=== PATIENT | female | born 1970 | race Caucasian/White ===

== ENCOUNTER → 2018-04-09 | Outpatient (CLI) | payer OTHER ==
[2018-04-09 14:19] LABS: BASOPHIL % 1.3 % (0-2); PLATELET COUNT 348 x10^3mcL (130-400)
[2018-04-09 14:30] LABS: RED CELL DISTRIBUTION WIDTH 15.6 % (11.5-14.5)
[2018-04-09 15:09] LABS: ALBUMIN 3.7 g/dL (3.4-5.0); ALKALINE PHOSPHATASE 126 U/L (46-116); ALT/SGPT 42 U/L (14-59); AST/SGOT 36 U/L (15-37); BILIRUBIN TOTAL 0.37 mg/dL (0.20-1.00); CALCIUM 8.8 mg/dL (8.5-10.1); CARBON DIOXIDE 26.5 mmol/L (21-32); CHLORIDE SERUM 105 mmol/L (98-107); CREATININE SERUM 0.5 mg/dL (0.6-1.0); GFR1 > 60 mL/min; GLUCOSE SERUM 95 mg/dL (74-106); HDL CHOLESTEROL 54 mg/dL (40-60); POTASSIUM SERUM 4.2 mmol/L (3.5-5.1); SODIUM SERUM 137 mmol/L (136-145); TOTAL PROTEIN, SERUM 7.9 g/dL (6.4-8.2); TRIGLYCERIDES 96 mg/dL (<150)
[2018-04-09 15:13] LABS: CHOLESTEROL 202 mg/dL (<200); CHOLESTEROL/HDL RATIO 3.7
== END | disposition home or self-care (01) ==
LOC: RD 13:28
DX: M25.552 Pain in left hip (principal)

== ENCOUNTER 2018-06-29 06:53 | Day surgery (SDC) | payer OTHER ==
[~2018-06-29] VITALS: Ht 152.4 cm; Wt 91.2 kg
[2018-06-29 07:52] VITALS: BP 129/67
[2018-06-29 13:18] VITALS: BP 120/60
== END 2018-06-29 11:15 | disposition home or self-care (01) ==
LOC: DS 06:53 → OR 08:30 → GI 08:30 → DS 11:15
PROVIDERS: Internal Medicine Gastroenterology
PROC: 0DJD8ZZ Inspection of Lower Intestinal Tract, Via Natural or Artificial Opening Endoscopic (ICD-10-PCS; principal; 2018-06-29 08:30)
DX: Z12.11 Encounter for screening for malignant neoplasm of colon (principal); Z68.39 Body mass index [BMI] 39.0-39.9, adult
CPT/HCPCS: 45378; J1610; J2250; J2310; J3010; J3490

== ENCOUNTER → 2018-07-26 | Outpatient (CLI) | payer OTHER | END | disposition home or self-care (01) | LOC: US 07-18 10:00 | PROC: BH41ZZZ Ultrasonography of Left Breast (ICD-10-PCS; principal; 2018-07-26) | DX: R92.2 Inconclusive mammogram (principal) | CPT/HCPCS: 76641 ==